=== PATIENT | male | born 1980 | race Caucasian/White ===

== ENCOUNTER 2024-06-30 15:29 | Emergency (ER) | payer BC, SELFPAY ==
[2024-06-30 15:38] VITALS: BP 139/98
[2024-06-30 15:56] LABS: % Basophils 1.1 % (0-2); % Immature Granulocytes 0.4 % (0-0.5); % Lymphocytes 31.8 % (20.5-51.1); % Monocytes 8.6 % (1.7-9.3); % Neutrophils 51.1 % (42.2-75.2); Absolute Basophils 0.1 10^3/uL (0-0.2); Absolute Eosinophils 0.4 10^3/uL (0-0.7); Absolute Lymphocytes 1.8 10^3/uL (1.2-3.4); Absolute Monocytes 0.5 10^3/uL (0.1-0.6); Absolute Neutrophils 2.9 10^3/uL (1.4-6.5); Hematocrit 41.8 % (39.0-52.0); Hemoglobin 15.4 g/dL (13.0-18.0); Mean Corp Hgb Conc. 36.8 g/dL (33.0-37.0); Mean Corpuscular Volume 81.5 fL (80.0-94.0); Mean Platelet Volume 10.1 fL (7.4-10.4); Nucleated Red Blood Cells % 0 % (-); Platelet Count 208 10^3/uL (130-400); Red Blood Cell Count 5.13 10^6/uL (4.70-6.10); Red Cell Dist. Width 12.6 % (11.5-14.5); White Blood Cell Count 5.6 10^3/uL (4.8-10.8)
[2024-06-30 16:13] LABS: ALT (SGPT) 32 U/L (0-50); AST (SGOT) 32 U/L (17-59); Albumin 5.1 g/dl (3.5-5.0); Alkaline Phosphatase 67 U/L (38-126); Blood Urea Nitrogen 19 mg/dl (9-20); Calcium 9.8 mg/dl (8.4-10.2); Carbon Dioxide 24 mmol/L (22-30); Chloride 104 mmol/L (98-107); Glucose 92 mg/dl (70-99); Potassium 4.3 mmol/L (3.5-5.1); Sodium 138 mmol/L (135-145); Total Bilirubin 0.8 mg/dl (0.2-1.3); Total Protein 8.5 g/dl (6.3-8.2); eGFR > 60.00
[2024-06-30 16:21] VITALS: BMI 27.5
[2024-06-30 16:22] LABS: Troponin I < 0.012 ng/ml
--- NOTE | 2024-06-30 16:40 | ED.GENMED ---
History of Present Illness
General
Chief Complaint: Chest Pain
Source: patient
Exam Limitations: none
Time Seen by Provider: 06/30/24 16:18
History of Present Illness
History of Present Illness:
43yoM with no significant past medical history presenting for evaluation of chest pain. Symptoms have been intermittent for the past several weeks. He reports the pain in his left lower chest that occurs intermittently throughout the day. Nothing
seems to make the pain better or worse. Specifically, he denies any pleuritic or exertional pain. He also had some pain in his mid back over the past week which was more constant. The pain has since improved. He states his pain almost feels like
a muscle pain. He has no active chest pain currently. He was seen at urgent care prior to arrival and was sent to the ED for evaluation. He is otherwise asymptomatic and denies any fevers, cough, shortness of breath, nausea, abdominal pain,
syncope. No tobacco use. No personal or family history of coronary artery disease.
Past History
Past History
ED Past Medical History: None
ED Past Surgical History: None
Social History
Tobacco: Non-smoker
Alcohol: Occasional
Drug: None
Living: with family
Employment: Employed
Phy Exam
General Physical Exam
General Presentation: well appearing and no apparent distress
General age: appears stated age
General Skin: warm and dry
General Habitus: normal
General Mental: alert
ENT Exam
ENT Exam: normocephalic
Cardiovascular Exam
Cardiovascular Exam: regular rate/rhythm and no murmur
Pulmonary Exam
Pulmonary Exam: lungs clear, no respiratory distress, no rales, chest non tender, no rhonchi and no wheezing
Neurological Exam
Neurological Exam: alert
[place] Coma Scale
Eye Opening: Spontaneous
Verbal Response: Oriented
Motor Response: Obeys Commands
GCS Total Score: 15
Skin Exam
Skin Exam: normal color and warm/dry
Psychiatric Exam
Psychiatric Exam: normal mood/affect
Scores
Heart Score for Chest Pain Patients
STEMI patient?: No
History: Slightly or Non-Suspicious
ECG: Normal
Age: </= 45 years
Risk Factors: No Risk Factors
Troponin: </= Normal Limit
Heart Score for Chest Pain Patients: 0
Heart Score Risk: 2.5% MACE over next 6 weeks
Course
Orders/Labs/Results
Orders:
Orders
06/30/24 15:29
Electrocardiogram (*1) Urgent
Reason for Study: Chest Pain
EKG- Treatment ONCE
06/30/24 15:40
CXR2 [CR Chest - 2 Views ] Urgent
Comment:
Reason For Exam: chest pain for weeks
06/30/24 15:42
Complete Blood Count/With Diff Urgent
Comprehensive Metabolic Panel Urgent
Troponin I Urgent
Abnormal Lab Results
06/30/24
15:42
Eosinophils % 7.0 H %
(0-6)
Total Protein 8.5 H g/dl
(6.3-8.2)
Albumin 5.1 H g/dl
(3.5-5.0)
06/30/24 15:42
06/30/24 15:42
Vital Signs
Initial and Last Documented VS:
Initial Vital Signs
Temp Pulse Resp BP Pulse Ox
98.2 F 72 16 139/98 98
06/30/24 15:38 06/30/24 15:38 06/30/24 15:38 06/30/24 15:38 06/30/24 15:38
Last Documented Vital Signs
Temp Pulse Resp BP Pulse Ox
98.2 F 72 16 139/98 98
06/30/24 15:38 06/30/24 15:38 06/30/24 15:38 06/30/24 15:38 06/30/24 15:38
MDM/Problems Addressed
Differential Diagnosis Includes:
43yoM here with chest pain. Intermittent x several months. No exertional or pleuritic symptoms. Denies SOB/syncope/nausea. No known cardiac risk factors. VSS. He is well appearing in no distress. Exam is reassuring. Differential diagnosis includes
but is not limited to: ACS, angina, pneumonia, pneumothorax, arrhythmia, musculoskeletal, nonspecific chest pain, doubt PE
Initial ED plan: Check cardiac labs, EKG, and CXR.
*EKG
Interpreted by ED Provider?: Yes
EKG Intrepretation Date: 06/30/24
Heart Rate: 70
Rate: normal
Rhythm: sinus
[place]: normal axis
Interval: normal interval
QRS Pattern: normal QRS
Ischemia: no ischemia
*Critical Care Note
Total Time (30-74mins, 75-104mins- exclusive of procedures): Not Applicable
Update Note
Update Note:
Labs overall unremarkable. EKG shows normal sinus rhythm without ischemic changes and troponin is within normal limits. Chest x-ray is clear per my interpretation. No indication for hospitalization at this time. He was advised to follow-up
closely with his PCP. Strict ED return precautions discussed. Patient in agreement with plan and was discharged in stable condition.
ED Attending Note
-
Portions of this chart may have been created with voice recognition software.� Occasional wrong word or��sound alike� substitutions may have occurred due to the inherent limitations of voice recognition software.
Discharge Plan
Departure
Patient Disposition: Home (Routine Discharge)
Date of Disposition: 06/30/24
Time of Disposition: 17:19
Patient with high blood pressure during this ER visit?: No
Discharge Problem:
Chest pain
Instructions: Chest Pain PCP Follow Up
Prescriptions:
No Action
metoprolol tartrate 25 MG tablet
25 mg PO BID Qty: 60 0RF
Referrals:
Lorne Gonsales MD [Family Provider] -
Activity Restrictions/Additional Instructions:
Please call today to schedule a follow-up with your family doctor. Return to the ER with any new or worsening symptoms.
Interventions
Interventions:
*Risk Screen - Suicide Last Done: 06/30/24 15:38
*General Assessment Last Done: 06/30/24 16:17
*Neglect/Abuse Screening Last Done: 06/30/24 15:38
ED- Fall Risk Assessment Last Done: 06/30/24 16:17
*ED COVID-19 Vaccine History Last Done: 06/30/24 16:17
*Nursing Disposition Last Done: 06/30/24 17:56
ED- Cardiac Assessment Last Done: 06/30/24 16:17
Discharge Date and Time
Discharge Date/Time: 06/30/24 17:56
Print Language: CHINESE
== END 2024-06-30 17:56 | disposition home or self-care (01) ==
LOC: EMR 15:29
PROVIDERS: EMERGENCY PHYSICIAN Emergency Medicine; FAMILY PHYSICIAN Family Medicine
DX: R07.89 Other chest pain (principal)
CPT/HCPCS: 99283; 71046; 80053; 84484; 85025; 93005

== ENCOUNTER → 2024-09-08 14:32 | Outpatient (REF) | payer BC, SELFPAY | LOC: RAD 14:32 | PROVIDERS: ATTENDING PHYSICIAN Physician Assistant Medical | DX: R10.32 Left lower quadrant pain (principal) | CPT/HCPCS: 74177; Q9967 ==

== ENCOUNTER 2025-01-30 06:26 | Day surgery (SDC) | payer BC, SELFPAY | END 2025-01-30 12:30 | disposition home or self-care (01) | LOC: GI 06:26 | PROVIDERS: ATTENDING PHYSICIAN Internal Medicine Gastroenterology | DX: K64.8 Other hemorrhoids (principal); R93.3 Abnormal findings on diagnostic imaging of other parts of digestive tract | CPT/HCPCS: 45380; 88305 ==